=== PATIENT | male | born 1965 | race Caucasian/White ===

== ENCOUNTER 2024-09-13 10:43 | Emergency (ER) | payer MEDICAID, SELFPAY ==
[2024-09-13 10:48] VITALS: BP 173/104; PULSE 79; RESP 18; TEMP 36.7; O2SAT 95
[2024-09-13 11:16] VITALS: BP 172/99; PULSE 85; RESP 16; O2SAT 98
[2024-09-13 11:19] VITALS: PULSE 87; RESP 18; O2SAT 98; BMI 24.0
--- NOTE | 2024-09-13 11:22 | PD.EDWEAK ---
ED Weakness RME/HPI General Chief complaint: Altered Mental Status Stated complaint: LOW BLOOD SUGAR Time Seen by Provider: 09/13/24 11:06 Arrival date/time: 09/13/24 10:43 RME / HPI RME / HPI Narrative: DR. BANERJEE MAIN ED EVALUATION: 58 year old male with past medical history significant for diabetes on both pills and insulin presents to the Emergency Department with complaint of low blood glucose, here 38. He denies any symptoms besides generalized weakness. Patient has been having low blood glucose for 2 weeks. He went to his PCP 2 weeks ago and his insulin was lowered, but his blood glucose is still running low. He reports eating normally, no decrease in appetite. Reports being less active. No cough, congestion, runny nose, fevers or chills. No dysuria or urinary symptoms. Patient also states he fell and had a femur fracture 2 months ago and had surgery by an ortho specialist at [place]. He reports he has been having right knee pain since and takes oxycodone for that. Related Data Home Medications ?Medication ?Instructions ?Recorded ?Confirmed aspirin 81 mg tablet,delayed 81 mg PO 2XD 02/08/23 02/11/23 release escitalopram oxalate 20 mg tablet 20 mg PO 1XD 02/08/23 02/11/23 fenofibrate micronized 200 mg 200 mg PO 1XD 02/08/23 02/11/23 capsule lamotrigine 100 mg tablet 100 mg PO QDAY 02/08/23 02/08/23 quetiapine 400 mg tablet 400 mg PO 1XD 02/08/23 02/11/23 Previous Rx's ?Medication ?Instructions ?Recorded insulin glargine 100 unit/mL (3 40 unit (0.4 mL) subcut QPM #15 mL 02/12/23 mL) subcutaneous pen (Basaglar KwikPen U-100 Insulin) pen needle, diabetic 32 gauge x #100 ea 02/12/23 (BD Ultra-Fine Jenny Pen Needle) Allergies Allergy/AdvReac Type Severity Reaction Status Date / Time No Known Allergies Allergy Unverified 02/08/23 16:39 Review of Systems Review of Systems Systems Reviewed: All systems reviewed, normal except as documented Narrative Review of Systems: GEN: No fever, no chills, no weight loss EYES: No discharge, no visual changes, no pain HEENT: No ear pain, no congestion, no sore throat PULM: No shortness of breath, no cough, no congestion CV: No chest pain, no dyspnea on exertion, no palpitations GI: No nausea, no vomiting, no diarrhea, no pain, no constipation : No frequency, no urgency and no dysuria MUSC/SKEL: No joint pain, no back pain SKIN: No rash PSYCH: No hallucinations, no depression HEME/LYMPH: No easy bleeding or bruising tendencies NEURO: + generalized weakness (less active too), no headache Past Medical History Past Medical History GASTROINTESTINAL: Positive Gastrointestinal Disorders and Pancreatitis MUSCULOSKELETAL: Positive Fractures ENDOCRINE: Positive Diabetes Mellitus Type 2 PSYCHO/SOCIAL: Positive Recreational Drug Use and Depression Surgical History SURGICAL: Positive Nose Surgery Social History SMOKING STATUS: Never smoker SUBSTANCE USE: does not use ALCOHOL: Never ED Exam Narrative Physical exam: GENERAL APPEARANCE: AxOx4, generally well-appearing, no acute distress. HEENT: NC, AT. MMM. EOMI, clear conjunctiva, oropharynx clear. NECK: Supple without lymphadenopathy. No stiffness or restricted ROM. HEART: Normal rate and regular rhythm, normal S1/S1, no m/r/g LUNGS: CTAB, moving air well. No crackles or wheezes are heard. ABDOMEN: Soft, nontender, nondistended with good bowel sounds heard. BACK: No midline C/T/L spine pain or deformity, No CVAT, no obvious deformity. EXTREMITIES: Without cyanosis, clubbing or edema. He has a left leg brace. MUSCULOSKELETAL: FROM of all major joints, no chest tenderness NEUROLOGICAL: Grossly nonfocal. Alert and oriented, moving all 4 extremities. CN not formally tested but appear grossly intact. Skin: Warm and dry without any rash. Course Quality Measures none Orders Category Date Time Status XR chest 1V Stat Exams 09/13/24 11:22 Completed CBC Stat Lab 09/13/24 11:54 Completed CMP [Comprehensive Metabolic Panel] Stat Lab 09/13/24 11:54 Completed Urinalysis Stat Lab 09/13/24 12:00 Completed oxyCODONE/APAP 5/325 [Percocet 5/325] Med 09/13/24 11:22 Discontinued 2 tab PO X1 ONE Vital Signs Vital signs: Vital Signs Temperature 98.1 F 09/13/24 10:48 Pulse Rate 79 09/13/24 10:48 Respiratory Rate 18 09/13/24 10:48 Blood Pressure 173/104 H 09/13/24 10:48 Pulse Oximetry (%) 95 09/13/24 10:48 Oxygen Delivery Method Room Air 09/13/24 10:48 Weakness MDM Narrative MDM Narrative:: IZonia am scribing for and in the presence of Dr. Banerjee. Patient data External records reviewed:: [facility] previous records (Reviewed last admission discharge dated 02/12/23 patient admitted for the following: AMS) and EMS form Clinical information provided by:: patient and EMS Social determinants that could affect healthcare access:: none Patient has the following chronic illnesses:: Diabetes Mellitus Type 2 on both pills and insulin. Patient also states he fell and had a femur fracture 2 months ago and had surgery by an ortho specialist at [place]. He reports he has been having right knee pain since and takes oxycodone for that. How is presenting disease/condition affected by chronic disease/condition?: exacerbated by Evaluation data The following diagnostics were reviewed and interpreted by me:: lab results and radiology exam(s) Lab and/or radiology exams considered but not ordered:: none Interpretation Summary: Procedure(s): XR chest 1V Accession Number(s): [id number] cc: Danilo Banerjee MD; Bartolome Suggs MD~ Examination: AP chest single view TECHNIQUE: Portable sitting AP chest single view Date and time: September 13, 2024 1142 hours Comparison 01/25/2013 INDICATIONS: Weakness today. FINDINGS: Normal heart size No pneumonia or pulmonary edema. Prominent osteopenia IMPRESSION: No pneumonia or pulmonary edema Dictated By: Bartolome Suggs MD Medications / Prescriptions Medications or Prescriptions considered but not ordered:: none Medication administrations:: Medication Administration History Discontinued Medications Oxycodone/Acetaminophen (Oxycodone/Apap 5/325 Tablet) 2 tab PO X1 ONE Stop: 09/13/24 11:23 Last Admin: 09/13/24 12:11 Dose: 2 tab Documented By: MM see above Consultations Consultation(s) initiated? (list below): No Diagnosis Weakness Differential Diagnosis: sepsis, dehydration and other (hypoglycemia) Most likely diagnosis given after review of the tests above:: Hypoglycemia Admission Indicated Admission indicated?: not indicated Admission Request Was there a request for admission?: No Disposition Plan Disposition Plan: Discharge Discharge Attestation Discharge Attestation: The patient and all family members were given an opportunity to ask questions and understood the discharge instructions. Discharge instructions specifically effects, indications for sooner follow up or return to the emergency department, and the expected course of current diagnosis. Patient condition: Stable Discharge Plan Plan Patient Disposition: HOME (Self Care) Prescriptions/Referrals Prescriptions/Med Rec: No Action fenofibrate micronized 200 mg capsule 200 mg PO 1XD Patient Comments: TAKE 1 CAPSULE BY MOUTH ONCE DAILY FOR 90 DAYS aspirin 81 mg Tablet,Delayed Release (Dr/Ec) 81 mg PO 2XD Patient Comments: Pt states he takes two a day lamotrigine 100 mg Tablet 100 mg PO QDAY escitalopram oxalate 20 mg tablet 20 mg PO 1XD Patient Comments: TAKE 1 TABLET BY MOUTH ONCE DAILY quetiapine 400 mg tablet 400 mg PO 1XD Patient Comments: TAKE 1 TABLET BY MOUTH ONCE DAILY FOR 90 DAYS insulin glargine [Basaglar KwikPen U-100 Insulin] 100 unit/mL (3 mL) insulin pen 40 unit subcut QPM Qty: 15 0RF (DME) pen needle, diabetic [BD Ultra-Fine Jenny Pen Needle] 32 gauge x 5/32 needle See Rx Instructions .Route Qty: 100 0RF Rx Instructions: As directed Referrals: Shane Rendon MD [Primary Care Provider] - In 1 week Problem List Clinical Impression: Hypoglycemia Patient/Caregiver Discharge Instructions Education Materials: Hypoglycemia (Low Blood Sugar), Hypoglycemia Steps, ED Hypoglycemia Oral Diabetic ... Additional Instructions: Cut your insulin in half for the next 3 days. Follow-up with your primary care doctor in 3-5 days for recheck. You can return to the emergency department sooner symptoms worsen or if you notice any new, concerning issues. Print Language: Martiniquais Stand Alone Forms: Nicole Award Info., Patient Portal Info Letter
[2024-09-13 12:02] VITALS: BP 166/98; PULSE 80; RESP 16; TEMP 37; O2SAT 96
[2024-09-13] MEDS: oxyCODONE/APAP 5/325 TABLET 2 TAB PO (12:11)
[2024-09-13 12:20] LABS: Collection Type, Urine Clean Catch
[2024-09-13 12:28] LABS: Basophils % (Auto) 0 % (0-2.5); Eosinophils % (Auto) 0 % (0-10); Hematocrit 40.3 % (41.0-53.0); Hemoglobin 14.1 g/dL (13.5-16.0); Immature Granulocytes % (Auto) 0 % (0-0); Immature Granulocytes Auto 0.01 Thou/mm3 (0.00-0.00); Lymphocytes # (Auto) 0.6 Thou/mm3 (1.0-4.8); Lymphocytes % (Auto) 10 % (10-50); Mean Corpuscular Hemoglobin 32.2 pg (25.0-35.0); Mean Corpuscular Volume 92 fL (80-100); Monocytes # (Auto) 0.6 Thou/mm3 (0.0-0.8); Monocytes % (Auto) 10 % (0-12); Neutrophils # (Auto) 4.6 Thou/mm3 (1.8-7.7); Neutrophils % (Auto) 79 % (37-80); Nucleated Red Blood Cell % 0 /100 WBC (0); Platelet Count 356 Thou/mm3 (140-440); RDW Standard Deviation 46.5 fL (35.1-43.9); Red Blood Count 4.38 Miln/mm3 (4.50-5.90); White Blood Count 5.8 Thou/mm3 (3.8-10.6)
[2024-09-13 12:29] LABS: Alanine Aminotransferase 27 U/L (10-49); Albumin, Serum 3.5 gm/dL (3.5-5.0); Albumin/Globulin Ratio 1.2 (1.2-2.2); Alkaline Phosphatase 124 U/L (46-116); Anion Gap 6 (7-16); Aspartate Amino Transferase 59 U/L (0-34); BUN/Creatinine Ratio 16 Ratio (12-20); Bilirubin,Total 0.7 mg/dL (0.3-1.2); Blood Urea Nitrogen 13 mg/dL (9-23); Calcium 9.4 mg/dL (8.3-10.6); Calcium (Corrected) 9.8 mg/dL (8.5-10.1); Carbon Dioxide 29.6 mMol/L (20.0-31.0); Chloride 95 mMol/L (98-107); Creatinine (Component) 0.8 mg/dL (0.6-1.3); Estimated Creatinine Clearance 105.2 mL/min (>60); Glucose 109 mg/dL (74-106); Osmolality,Calculated 263 (275-295); Sodium 131 mMol/L (136-145); Total Protein 6.5 gm/dL (5.7-8.2); eGFR > 60 See Note
[2024-09-13 12:38] LABS: Bilirubin,Urine Negative (Negative); Blood,Urine Negative (Negative); Clarity,Urine Clear (Clear/Hazy); Color,Urine Yellow (Lt Yel-Yel); Glucose, Urine Negative (Negative); Ketones,Urine Negative (Negative); Leukocyte Esterase,Urine Negative (Negative); Nitrite,Urine Negative (Negative); PH,Urine 6.5 (5.0-7.0); Protein,Urine Trace (Neg - Trace); RBC,Urine 4 /hpf (0-3); Specific Gravity,Urine 1.015 (1.001-1.035); Squamous Epithelial Cell,Urine < 1 /hpf (0-5); WBC,Urine 1 /hpf (0-5)
[2024-09-13 14:12] VITALS: BP 149/99; PULSE 78; RESP 16; TEMP 36.8; O2SAT 97
[2024-09-13] MEDS: oxyCODONE/APAP 5/325 TABLET 1 TAB PO (15:51)
[2024-09-13 16:06] VITALS: BP 157/98; PULSE 78; RESP 18; TEMP 36.8; O2SAT 98
== END 2024-09-13 17:10 | disposition home or self-care (01) ==
PROVIDERS: Emergency Provider Emergency Medicine; PCP Specialist
DX: E11.649 Type 2 diabetes mellitus with hypoglycemia without coma (principal); R53.1 Weakness; M25.561 Pain in right knee; Z79.84 Long term (current) use of oral hypoglycemic drugs; Z79.4 Long term (current) use of insulin
CPT/HCPCS: 36415; 71045; 80053; 81001; 85025; 99283; A9270

== ENCOUNTER → 2024-10-20 | Outpatient (CLI) | payer MEDICAID, SELFPAY ==
--- NOTE | 2024-10-20 | XR_ITS ---
Examination: Bilateral knees single view AP left femur single view Date and time: October 20, 2024 1258 hours INDICATIONS: Left knee pain months. FINDINGS: Subacute healing fracture proximal tibia at junction diaphysis metaphysis No significant displacement Old healed fracture proximal left femur with intramedullary martha satisfactory position IMPRESSION: Partial healing subacute fracture proximal tibia
== END | disposition home or self-care (01) ==
LOC: CDIM 11:55
PROVIDERS: PCP Specialist; Referring Provider Specialist; Visit Provider Specialist
DX: S82.102A Unspecified fracture of upper end of left tibia, initial encounter for closed fracture (principal); X58.XXXA Exposure to other specified factors, initial encounter
CPT/HCPCS: 73565